=== PATIENT | female | born 1965 ===

== ENCOUNTER 2018-05-26 17:46 | Emergency (ER) | payer MEDICAID ==
--- NOTE | 2018-05-26 18:29 | ED PDOC ---
HPI: CCC, URI, Sore Throat Time Seen by Provider: 05/26/18 18:09 Chief Complaint (Nursing): Cough, Cold, Congestion Chief Complaint (Provider): Cough and congestion x 3 weeks History Per: Patient History/Exam Limitations: no limitations Have you had recent travel within the past 21 days to any of the following countries: [place], [place], [place] or [place]?: No Onset/Duration Of Symptoms: Persistent Current Symptoms Are (Timing): Still Present Associated Symptoms: Fever, Sore Throat, Cough, Nasal Congestion. denies: Vomiting, Diarrhea Additional Complaint(s): 53yo female, otherwise well, comes to ER for evaluation of cough and congestion x 3 weeks. Patient reports she saw her PMD Dr. Adria Beard, who gave her prescription for Azithromax and then Ciprofloxacin with transient relief. Patient reports she has had fever since 5 days and has associated cough and congestion; she denies any vomiting and diarrhea. Patient has been taking prescription cough suppresant as well with minimal relief. Patient offers no additional complaints. Past Medical History Reviewed: Historical Data, Nursing Documentation, Vital Signs Vital Signs: Last Vital Signs Temp 98.4 F 05/26/18 18:02 Pulse 58 L 05/26/18 18:02 Resp 18 05/26/18 18:02 BP 138/75 05/26/18 18:02 Pulse Ox 99 05/26/18 18:02 - Medical History PMH: Diverticulitis, Hypercholesterolemia - Surgical History Surgical History: Other surgeries: tubal ligation - Family History Family History: States: No Known Family Hx - Social History Current smoker - smoking cessation education provided: No Alcohol: None Drugs: Denies - Immunization History Hx Tetanus Toxoid Vaccination: Yes Hx Influenza Vaccination: Yes Hx Pneumococcal Vaccination: Yes - Home Medications Home Medications: Ambulatory Orders Medication Instructions Recorded Cyclobenzaprine HCl [Flexeril] 1 tab PO TID PRN #25 tab 12/03/14 Naproxen [Naprosyn] 1 tab PO BID PRN #25 tab 12/03/14 Ibuprofen [Motrin Tab] 600 mg PO Q8 PRN #30 tab 05/26/18 Oseltamivir Cap [Tamiflu] 75 mg PO BID #10 cap 05/26/18 - Allergies Allergies/Adverse Reactions: Allergies Allergy/AdvReac Type Severity Reaction Status Date / Time amoxicillin Allergy RASH Verified 05/26/18 18:00 Review of Systems ROS Statement: Except As Marked, All Systems Reviewed And Found Negative Constitutional: Positive for: Fever ENT: Positive for: Nose Congestion, Throat Pain Respiratory: Positive for: Cough Gastrointestinal: Negative for: Vomiting, Diarrhea Physical Exam - Reviewed Nursing Documentation Reviewed: Yes Vital Signs Reviewed: Yes - Physical Exam Appears: Positive for: Non-toxic, No Acute Distress (tired appearing) Head Exam: Positive for: ATRAUMATIC, NORMAL INSPECTION, NORMOCEPHALIC Skin: Positive for: Normal Color Eye Exam: Positive for: EOMI, PERRL ENT: Positive for: Pharyngeal Erythema, Other (moist mucus membranes). Negative for: Tonsillar Exudate, Tonsillar Swelling Neck: Positive for: Normal, Supple Cardiovascular/Chest: Positive for: Regular Rate, Rhythm Respiratory: Positive for: Normal Breath Sounds Gastrointestinal/Abdominal: Positive for: Normal Exam, Soft Back: Positive for: Normal Inspection. Negative for: Decreased ROM Extremity: Positive for: Normal ROM Lymphatic: Negative for: Adenopathy Neurologic/Psych: Positive for: Alert, Oriented - Laboratory Results Result Diagrams: 05/26/18 19:10 05/26/18 19:10 - ECG O2 Sat by Pulse Oximetry: 99 (RA) Pulse Ox Interpretation: Normal Medical Decision Making Medical Decision Making: Impression: Recurrent bronchitis Differential: Pneumonia, influenza, viral syndrome, CHF Plan: -- labs -- Chest x-ray -- rapid flu -- EKG CXR No acute findings Labs with no clinically significant abnormalities DW pt findings. Will treat as viral bronchitis. Rest, fluids, Tamiflu due to current local prevalence, f/u PMD. ------ Scribe Attestation: Documented by Kimberly Henriquez acting as a scribe for Joaquina Mckeon MD. Provider Attestation: All medical record entries made by the Scribe were at my direction and personally dictated by me. I have reviewed the chart and agree that the record accurately reflects my personal performance of the history, physical exam, medical decision making, and the department course for this patient. I have also personally directed, reviewed, and agree with the discharge instructions and disposition. Disposition - Clinical Impression Clinical Impression: Bronchitis - Disposition Referrals: Adria Beard APN [Advanced Practice Nurse] - Disposition: Routine/Home Disposition Time: 20:52 Condition: STABLE Additional Instructions: CONTINUE [facility] PARA TOS DESCANSE Y MYNOR MUCHOS SUEROS VISITA ALMEIDA DOCTOR ANTES QUE FIN DE SEMANA Prescriptions: Ibuprofen [Motrin Tab] 600 mg PO Q8 PRN #30 tab PRN Reason: Pain, Moderate (4-7) Oseltamivir Cap [Tamiflu] 75 mg PO BID #10 cap Instructions: Viral Syndrome (DC), Cough, Adult (DC) Forms: [facility] ED School/Work Excuse Print Language: SLOVAK
[2018-05-26 19:17] LABS: BASO % 0.4 % (0.0-2.0); EOS # 0.1 K/uL (0.0-0.7); EOS % 1.3 % (0.0-4.0); HEMOGLOBIN 11.8 g/dL (12.0-16.0); LYMPH # 3.2 K/uL (1.0-4.3); MEAN CELL VOLUME 82.8 fl (81.0-99.0); MEAN CORPUSCULAR HEMOGLOBIN 28.1 pg (27.0-31.0); MEAN CORPUSCULAR HGB CONC 33.9 g/dL (33.0-37.0); MEAN PLATELET VOLUME 6.7 fl (7.2-11.7); MONO # 0.6 K/uL (0.0-0.8); MONO % 10.3 % (0.0-10.0); NEUT # 2.2 K/uL (1.8-7.0); RBC 4.22 Mil/uL (3.80-5.20); RED CELL DISTRIBUTION WIDTH 14.2 % (11.5-14.5); WHITE BLOOD COUNT 6.2 K/uL (4.8-10.8)
[2018-05-26 19:29] LABS: ALB/GLOB RATIO 1.1 (1.0-2.1); ALBUMIN 4.3 g/dL (3.5-5.0); ALT/SGPT 65 U/L (9-52); AST/SGOT 59 U/L (14-36); BLOOD UREA NITROGEN 18 mg/dl (7-17); GFR NON-AFRICAN AMERICAN > 60
[2018-05-26 19:39] LABS: B-TYPE NATRIURETIC PEPTIDE 54.4 pg/ml (0-900)
[2018-05-26 22:40] VITALS: BP 130/66; PULSE 90; RESP 16; TEMP 97.8; O2SAT 100
--- NOTE | 2018-05-27 08:46 | RAD ---
Date of service: 05/26/2018 HISTORY: chest pain cough COMPARISON: No prior. TECHNIQUE: Chest PA and lateral FINDINGS: LUNGS: No active pulmonary disease. PLEURA: No significant pleural effusion identified. No pneumothorax apparent. CARDIOVASCULAR: No aortic atherosclerotic calcification present. Normal cardiac size. No pulmonary vascular congestion. OSSEOUS STRUCTURES: No significant abnormalities. VISUALIZED UPPER ABDOMEN: Normal. OTHER FINDINGS: None. IMPRESSION: No acute cardiopulmonary disease appreciated.
--- NOTE | 2018-05-27 12:17 | CARD ---
APPROVED REPORT Date of service: 05/26/2018 EKG Measurement Heart [id number] <Conclusion> Normal sinus rhythm Nonspecific ST abnormality Abnormal ECG
== END 2018-05-26 21:55 | disposition home or self-care (01) ==
LOC: H.ER 17:46
DX: J20.8 Acute bronchitis due to other specified organisms (principal)